=== PATIENT | male | born 1975 | race Caucasian/White ===

== ENCOUNTER 2016-08-30 10:31 | Emergency (ER) | payer OTHER, MEDICAID ==
[2016-08-30] MEDS ORDERED: METHOCARBAMOL 500 MG TABLET PO STA (11:19)
[2016-08-30] MEDS ORDERED: HYDROcod/ACETAM 5/325 MG TABLET PO STA (11:19)
[2016-08-30] MEDS ORDERED: METHOCARBAMOL 500 MG TABLET PO ONE (11:22)
[2016-08-30] MEDS ORDERED: HYDROcod/ACETAM 5/325 MG TABLET ONE (11:22)
== END 2016-08-30 13:04 | disposition home or self-care (01) ==
DX: S16.1XXA Strain of muscle, fascia and tendon at neck level, initial encounter (principal); S39.012A Strain of muscle, fascia and tendon of lower back, initial encounter; V53.5XXA Driver of pick-up truck or van injured in collision with car, pick-up truck or van in traffic accident, initial encounter; Y92.410 Unspecified street and highway as the place of occurrence of the external cause; I10 Essential (primary) hypertension; E11.9 Type 2 diabetes mellitus without complications; F17.200 Nicotine dependence, unspecified, uncomplicated
CPT/HCPCS: 70450; 72125; 72131; 99283; A9270

== ENCOUNTER 2016-10-30 13:45 | Outpatient (CLI) | payer MEDICAID | END 2016-10-30 14:00 | disposition home or self-care (01) | DX: Z01.810 Encounter for preprocedural cardiovascular examination (principal) ==

== ENCOUNTER 2016-10-30 14:13 | Outpatient (CLI) | payer MEDICAID | END 2016-10-30 14:14 | disposition home or self-care (01) | DX: Z01.818 Encounter for other preprocedural examination (principal); R39.11 Hesitancy of micturition ==

== ENCOUNTER 2016-10-30 14:30 | Outpatient (CLI) | payer MEDICAID | END 2016-10-30 14:31 | disposition home or self-care (01) | DX: I10 Essential (primary) hypertension (principal) ==

== ENCOUNTER 2016-11-29 04:15 | Outpatient (CLI) | payer MEDICAID | END 2016-11-29 04:16 | disposition home or self-care (01) | LOC: LAB.N 04:15 | PROVIDERS: ATTEND Nurse Practitioner Gerontology | DX: N39.0 Urinary tract infection, site not specified (principal) | CPT/HCPCS: 87491; 87591 ==

== ENCOUNTER 2017-01-09 09:44 | Outpatient (CLI) | payer MEDICAID ==
[2017-01-09 13:36] LABS: HEMOGLOBIN A1C 0.77 g/dL
== END 2017-01-09 09:45 | disposition home or self-care (01) ==
LOC: LAB.N 09:44
PROVIDERS: ATTEND Nurse Practitioner Gerontology
DX: E11.9 Type 2 diabetes mellitus without complications (principal)
CPT/HCPCS: 36415; 83036

== ENCOUNTER 2017-07-02 08:00 | Outpatient (CLI) | payer MEDICAID ==
[2017-07-02 12:26] LABS: BASOPHILS % (AUTO) 0.3 %; EOSINOPHILS # (AUTO) 0.1 10^3/uL (0.0-0.7); EOSINOPHILS % (AUTO) 1.6 %; HCT - HEMATOCRIT 44.8 % (42.0-52.0); HGB - HEMOGLOBIN 15.2 g/dL (14.0-18.0); LYMPHOCYTES # (AUTO) 1.3 10^3/uL (1.5-3.5); LYMPHOCYTES % (AUTO) 18.1 %; MEAN CORPUSCULAR HEMOGLOBIN 28.3 pg (27.0-31.0); MEAN CORPUSCULAR VOLUME 83.4 fL (80.0-94.0); MEAN PLATELET VOLUME 9.4 fL (7.4-11.4); MONOCYTES # (AUTO) 0.5 10^3/uL (0.0-1.0); MONOCYTES % (AUTO) 6.4 %; NEUTROPHILS # (AUTO) 5.4 10^3/uL (1.5-6.6); NEUTROPHILS % (AUTO) 73.6 %; RED BLOOD COUNT 5.38 10^6/uL (4.70-6.10); RED CELL DISTRIBUTION WIDTH 13.9 % (12.0-15.0); UNCORRECTED WHITE BLOOD COUNT 7.3 x10^3/uL; WHITE BLOOD COUNT 7.3 x10^3/uL (4.8-10.8)
[2017-07-02 12:43] LABS: ALBUMIN/GLOBULIN RATIO 1.2 (1.0-2.2); BILIRUBIN,TOTAL 0.6 mg/dL (0.2-1.0); BUN - BLOOD UREA NITROGEN 18 mg/dL (6-20); CALCIUM 9.5 mg/dL (8.5-10.3); CARBON DIOXIDE - CO2 24 mmol/L (21-32); CHLORIDE 100 mmol/L (101-111); CHOL/HDL RATIO 5.8 (<5.0); CHOLESTEROL 191 mg/dL; CREATININE 0.9 mg/dL (0.6-1.2); GFR - MDRD 93 (>89); GLUCOSE 142 mg/dL (70-100); HDL CHOLESTEROL 33 mg/dL; LDL/HDL RATIO 3.2 (<3.6); POTASSIUM 4.2 mmol/L (3.5-5.0); SODIUM 135 mmol/L (135-145); TOTAL PROTEIN 7.7 g/dL (6.7-8.2); TRIGLYCERIDES 271 mg/dL; VLDL CHOLESTEROL 54 mg/dL
[2017-07-02 13:08] LABS: HEMOGLOBIN A1C 0.91 g/dL
== END 2017-07-02 08:01 | disposition home or self-care (01) ==
LOC: LAB.N 08:00
PROVIDERS: ATTEND Nurse Practitioner Gerontology
DX: E11.9 Type 2 diabetes mellitus without complications (principal); E03.9 Hypothyroidism, unspecified
CPT/HCPCS: 36415; 80053; 80061; 82043; 83036; 84443; 85025

== ENCOUNTER 2017-10-08 14:51 | Outpatient (CLI) | payer BC, MEDICAID | END 2017-10-08 14:52 | disposition home or self-care (01) | LOC: SC 14:51 | PROVIDERS: ATTEND Nurse Practitioner Family | DX: G47.30 Sleep apnea, unspecified (principal); G47.10 Hypersomnia, unspecified; G47.8 Other sleep disorders; R06.83 Snoring | CPT/HCPCS: 99204; 99212 ==

== ENCOUNTER 2018-01-01 09:14 | Outpatient (CLI) | payer BC, MEDICAID | END 2018-01-01 09:15 | disposition home or self-care (01) | LOC: SC 09:14 | PROVIDERS: ATTEND Nurse Practitioner Family | DX: G47.33 Obstructive sleep apnea (adult) (pediatric) (principal) | CPT/HCPCS: 99212; 99214 ==

== ENCOUNTER 2018-01-28 08:00 | Outpatient (CLI) | payer BC, MEDICAID ==
[2018-01-28 13:03] LABS: BASOPHILS % (AUTO) 0.6 %; EOSINOPHILS # (AUTO) 0.1 10^3/uL (0.0-0.7); EOSINOPHILS % (AUTO) 1.7 %; LYMPHOCYTES # (AUTO) 1.1 10^3/uL (1.5-3.5); LYMPHOCYTES % (AUTO) 18.3 %; MEAN CORPUSCULAR HEMOGLOBIN 28.7 pg (27.0-31.0); MEAN CORPUSCULAR HGB CONC 33.7 g/dL (32.0-36.0); MEAN PLATELET VOLUME 9.3 fL (7.4-11.4); MONOCYTES # (AUTO) 0.4 10^3/uL (0.0-1.0); MONOCYTES % (AUTO) 6.8 %; NEUTROPHILS # (AUTO) 4.5 10^3/uL (1.5-6.6); NEUTROPHILS % (AUTO) 72.6 %; PLT - PLATELET COUNT 222 10^3/uL (130-450); RED BLOOD COUNT 5.22 10^6/uL (4.70-6.10); RED CELL DISTRIBUTION WIDTH 13.5 % (12.0-15.0); WHITE BLOOD COUNT 6.2 x10^3/uL (4.8-10.8)
[2018-01-28 13:23] LABS: HB2 TOTAL 16.7 g/dL; HEMOGLOBIN A1C 0.96 g/dL; HEMOGLOBIN A1C % 7.4 % (4.6-6.2)
[2018-01-28 13:31] LABS: ALBUMIN 3.7 g/dL (3.2-5.5); BILIRUBIN,TOTAL 0.5 mg/dL (0.2-1.0); CALCIUM 8.8 mg/dL (8.5-10.3); CREATININE 0.9 mg/dL (0.6-1.2); TOTAL PROTEIN 7.4 g/dL (6.7-8.2)
== END 2018-01-28 08:01 | disposition home or self-care (01) ==
LOC: LAB.N 08:00
PROVIDERS: ATTEND Nurse Practitioner Gerontology
DX: E03.9 Hypothyroidism, unspecified (principal); E11.9 Type 2 diabetes mellitus without complications; I10 Essential (primary) hypertension
CPT/HCPCS: 36415; 80053; 83036; 84443; 85025

== ENCOUNTER 2018-04-15 08:51 | Outpatient (CLI) | payer BC | END 2018-04-15 08:52 | disposition home or self-care (01) | LOC: SC 08:51 | PROVIDERS: ATTEND Internal Medicine Pulmonary Disease | DX: G47.33 Obstructive sleep apnea (adult) (pediatric) (principal) | CPT/HCPCS: 99212; 99213 ==

== ENCOUNTER 2020-04-26 08:00 | Outpatient (CLI) | payer SELFPAY | END 2020-04-26 23:59 | disposition home or self-care (01) | LOC: COV 08:00 | PROVIDERS: ATTEND Family Medicine | DX: Z20.828 Contact with and (suspected) exposure to other viral communicable diseases (principal) ==

== ENCOUNTER 2021-03-16 09:38 | Outpatient (CLI) | payer MEDICAID ==
--- NOTE | 2021-03-16 10:12 | SLEEP CARE CONSULTATION ---
Information from patient questionnaire entered by Shanti Dejesus. I have reviewed and concur with the information entered by Shanti Dejesus. This document represents the service I personally performed and the decisions made by , Sasha Kang ARNP. History of Present Illness Service Date and Time: 03/16/2021 0938 Previous diagnosis: Very Severe, Obstructive Sleep Apnea-Hypopnea Syndrome AHI: 69.3 (in 2018) Reason for follow up: annual (last seen 04/2018) Equipment type: CPAP Equipment obtained from: [employer] (no longer giving supplies) Mask style: Full face Backup mask available: Yes (old mask) Last cushion change: 1 year Prior sleep studies: Yes Year and Where: 2018 - [facility] Type of Sleep Study: Home sleep study HPI additional information: LUIS EDUARDO CARVAJAL was diagnosed to have very severe, AHI 69.3, obstructive sleep apnea-hypopnea syndrome and returned today for CPAP therapy annual follow-up. CPAP Compliance Data - Data Reviewed with Patient Average duration of nightly device use: 8 hr 54 min Compliance rate %: 93.9 (180 days) Current pressure setting (cmH2O): 4-20 Humidity settin Heated hose settin Average residual AHI: 4.8 Average large leak: 1 hr 2 min Subjective Missed days of use due to: reports: mask issues (mask slipping up on face, thinks needs a chinstrap) Patient concerns: reports: air blowing in eyes, mask leak noise, other (keep down over face, need chin strap). denies: aerophagia, mask discomfort, condensation in mask/hose, nasal congestion, dry mouth, nose, throat, epistaxis Observed to snore while using device: No Current pressure setting perceived as: comfortable (may be too low at beginning at the night, 10-11 cmH2O is good) On therapy, patient: reports: sleeping better, awakening more refreshed, being more awake and alert during the day, more rested overall. denies: drowsiness while driving Initial [place] Sleepiness Scale score: 22 (in 2018) Current [place] Sleepiness Scale score: 18 Allergies and Home Medications Home medication list reviewed: Yes (no changes) Review of Systems Review of systems same as previous: Yes (no changes) Physical Exam Heart Rate: 86 O2 Saturation: 97 Height: 6 ft 4 in Weight: 338 lb Weight change since last visit: 42 lb loss Body Mass Index: 41.1 BMI Classification: Morbidly Obese Impression and Plan 1. Obstructive Sleep Apnea-Hypopnea Syndrome, very severe, with good treatment compliance and good apnea control. On CPAP therapy, the patient has better sleep quality and is more rested overall. Patient has been having trouble with his mask writing up onto his face. He uses a fullface mask but he finds that it is coming out but he thinks maybe a chinstrap would help. He has lost over 40 pounds since his last visit and I think a mask refitting would be appropriate at this time. Patient also feels that the pressure may be a little bit too low at the beginning of the night. He would like the starting pressure increased to at least 8 cmH2O. I will change his pressure setting to 8-15 cmH2O. Patient is to notify me if this change is uncomfortable and I will make adjustments as needed. I informed the patient that [employer] has a recall on several devices like the patients machine. Patient was encouraged to register their device online with [employer] for the recall to see if their device is affected. If their device is affected they should start a claim. Patient denies any black particles seen in machine or hoses, any unusual odors coming from device. Patient has not experienced any physical symptoms such as upper airway irritation, headache, skin or eye irritation, asthma, nausea/vomiting, difficulty breathing or chest pain. Patient informed that they may use an inline CPAP filter that they can obtain online to reduce chance of any particles being inhaled or ingested. We discussed thoroughly the health risks of not using the CPAP versus continuing use with the filter in place. If patient is not able to sleep due to waking up choking, gasping for air or other respiratory distress that they may decide to continue using it until it is either replaced or repaired. Patient voiced understanding and agreement with plan. Patient was encouraged to continue with his weight loss. He has been watching what he eats and increasing his exercise to lose over 42 pounds. Patient's apnea severity and rationale for treatment to reduce apnea, improve sleep quality and reduce cardiovascular and cerebrovascular events was reviewed. I also reviewed the b enefit of consistent device use of CPAP for hypertension, diabetes, and ADD. * Mask refitting * Change auto CPAP pressure to 8-15 cmH2O * Transfer DME * Patient to register for recall on device * Notify me if snoring with mask or feeling that the pressure is too much or too little * Continue to try to lose weight * Call this office if any problems using CPAP * Return for follow up in 1 year, or sooner if concerns arise Counseling Topics: Spare mask, Weight loss health impact Visit Type: In Office Time Spent with Patient (minutes): 27 Provider Statement: I spent 100% of the Face to Face Visit with the patient with greater than 50% spent counseling the patient and coordination of care.
== END 2021-03-16 09:39 | disposition home or self-care (01) ==
LOC: SC 09:38
PROVIDERS: ATTEND Nurse Practitioner Family
DX: G47.33 Obstructive sleep apnea (adult) (pediatric) (principal); E66.01 Morbid (severe) obesity due to excess calories; Z68.41 Body mass index [BMI] 40.0-44.9, adult
CPT/HCPCS: 99212; 99213

== ENCOUNTER 2021-11-20 20:48 | Outpatient (CLI) | payer MEDICAID | END 2021-11-20 20:49 | disposition E | LOC: EMS 20:48 | DX: I46.9 Cardiac arrest, cause unspecified (principal) | CPT/HCPCS: A0425; A0428 ==